=== PATIENT | female | born 1995 | race Caucasian/White ===

== ENCOUNTER 2018-01-06 21:27 | Outpatient (CLI) | payer SELFPAY ==
[2018-01-20 17:26] VITALS: BMI 32.8
== END 2018-01-07 19:37 | disposition home or self-care (01) ==
LOC: D.LDO 21:27 → D.LD 23:12 → D.LDO 01-07 19:37
DX: O26.893 Other specified pregnancy related conditions, third trimester (principal); Z3A.37 37 weeks gestation of pregnancy

== ENCOUNTER → 2018-01-07 13:43 | Outpatient (CLI) | payer SELFPAY ==
[~2018-01-07 13:43] MED LIST: IRON OTC; PRENATAL COMPLE1 TAB PO; stool softner
[2018-01-20 17:26] VITALS: BMI 32.8
== END | disposition home or self-care (01) ==
LOC: D.LDO 13:43
DX: O26.893 Other specified pregnancy related conditions, third trimester (principal); Z3A.37 37 weeks gestation of pregnancy

== ENCOUNTER 2018-01-17 12:23 | Inpatient (IN) | payer OTHER ==
[~2018-01-17] VITALS: Ht 165.1 cm; Wt 89.4 kg
--- NOTE | ~2018-01-17 | DS ---
PATIENT:LINDA MAR :89 MEDICAL RECORD: [id number] DISCHARGE SUMMARY ADMISSION DATE: 01/20/18 DISCHARGE DATE: 01/23/18 DATE OF ADMISSION: 01/21/2018. DATE OF DISCHARGE: 01/23/2018. ADMISSION DIAGNOSIS: at term. DISCHARGE DIAGNOSIS: Mother delivered at term. PROCEDURE: Induction of labor with vaginal delivery. ATTENDING: Demetrius Mae MD HISTORY OF PRESENT ILLNESS AND INDICATION FOR HOSPITALIZATION: See the H&P in the chart. SUMMARY OF HOSPITALIZATION: The patient was admitted to the hospital and underwent induction of labor without incident. At the time of discharge, she is doing well without complaint. The patient is going to be discharged home with ibuprofen for pain management. She has been given contraception counseling and standard precautions. The patient will follow up in 6 weeks at [facility]. TRANSINT:[id number] Voice Confirmation ID: [id number] DOCUMENT ID: [id number] DEMETRIUS MAE MD at 1727 CC: [id number] DICTATION DATE: 01/23/18929 BUGGYMAN: 01/23/18 193 DIS IN 01/23/18 [facility] [address] [place] [address]
--- NOTE | ~2018-01-17 | OP ---
PATIENT NAME: LINDA MAR MEDICAL RECORD: [id number] :89 LOCATION:[id number] ADMISSION DATE:01/20/18 SURGEON: DEMETRIUS GERMAN MD DATE OF OPERATION: 01/21/2018 PREDELIVERY DIAGNOSES: 1. at 39 weeks. 2. Desires delivery. POSTDELIVERY DIAGNOSIS: Mother delivered at 39 weeks. PROCEDURE: Induction of labor with vaginal delivery. ATTENDING: Demetrius German MD ANESTHETIC: Continuous lumbar epidural. FINDINGS: Viable male , vertex presentation, Apgars 9 and 9, weight (). Laceration was a first degree with 4-0 chromic repair. Placenta spontaneous and intact. Nuchal cord times 1 encountered and reduced at the time of delivery. EBL: 300 cc. DISPOSITION: Mother and recovered in room. TRANSINT:[id number] Voice Confirmation ID: [id number] DOCUMENT ID: [id number] DEMETRIUS GERMAN MD at 1727 CC: [id number] DICTATION DATE: 01/21/18 1227 PACKING MACHINE CAN FEEDER: 01/21/18 1302 DIS IN 01/23/18 [facility] [id number] [place] [address]
[2018-01-20] MEDS ORDERED: PRENATAL COMPLE1 TAB PO (17:22)
[2018-01-20] MEDS ORDERED: IRON OTC (17:24)
[2018-01-20] MEDS ORDERED: stool softner (17:25)
[2018-01-20 17:26] VITALS: BP 117/64; Ht 165.1 cm; Wt 89.4 kg
[2018-01-20 18:02] LABS: HEMATOCRIT 36.7 % (36.0-48.0); HEMOGLOBIN 12.7 g/dL (12-16); MCH 31.8 pg (26.0-34.0); MCHC 34.6 g/dL (31.0-37.0); MEAN PLATELET VOLUME 9.7 fL (7.4-10.4); RBC 3.99 10x6/uL (4.00-5.40); RDW 14.2 % (11.5-14.5)
[2018-01-20 21:42] LABS: APPEARANCE CLEAR (CLEAR); BILIRUBIN NEGATIVE (NEGATIVE); COLOR YELLOW (YELLOW); GLUCOSE NEGATIVE (NEGATIVE); KETONE NEGATIVE (NEGATIVE); NITRITE NEGATIVE (NEGATIVE); PROTEIN NEGATIVE (NEGATIVE); SPECIFIC GRAVITY 1.015 (1.005-1.020); UROBILINOGEN NORMAL (NORMAL)
[2018-01-21 16:00] VITALS: BP 114/62
[2018-01-21 20:04] VITALS: BP 114/75
[2018-01-22 06:15] LABS: RAPID PLASMA REAGIN Non Reactive (Non Reactive)
[2018-01-22 07:25] VITALS: BP 121/70
[2018-01-22 07:34] LABS: BASOPHILS 0.2 % (0-2); EOSINOPHILS 1.2 % (0-7); HEMATOCRIT 37.8 % (36.0-48.0); HEMOGLOBIN 12.7 g/dL (12-16); IMMATURE GRANULOCYTES 0.7 % (0-5); LYMPHOCYTES 13.7 % (15-50); MCH 31.1 pg (26.0-34.0); MCHC 33.6 g/dL (31.0-37.0); MCV 92.6 fL (80.0-100.0); MEAN PLATELET VOLUME 9.6 fL (7.4-10.4); MONOCYTES 8.3 % (2-11); NEUTROPHILS 75.9 % (40-80); RBC 4.08 10x6/uL (4.00-5.40); RDW 14.1 % (11.5-14.5); WBC 12.5 10x3/uL (4.8-10.8)
[2018-01-22 07:38] LABS: PLATELET COUNT 111 10x3/uL (130-400)
[2018-01-22 14:40] VITALS: BP 126/68
[2018-01-23 08:07] VITALS: BP 121/67
== END 2018-01-23 11:05 | disposition home or self-care (01) | DRG 775 ==
LOC: UNDOADMIN 12:23 → D.SDCHOLD 12:23 → D.LD 12:25
PROVIDERS: Obstetrics & Gynecology
PROC: 10907ZC Drainage of Amniotic Fluid, Therapeutic from Products of Conception, Via Natural or Artificial Opening (ICD-10-PCS; principal; 2018-01-21)
PROC: 10E0XZZ Delivery of Products of Conception, External Approach (ICD-10-PCS; 2018-01-21)
PROC: 3E033VJ Introduction of Other Hormone into Peripheral Vein, Percutaneous Approach (ICD-10-PCS; 2018-01-21)
PROC: 0HQ9XZZ Repair Perineum Skin, External Approach (ICD-10-PCS; 2018-01-21)
DX: O99.824 Streptococcus B carrier state complicating childbirth (principal); O36.0930 Maternal care for other rhesus isoimmunization, third trimester, not applicable or unspecified; O69.81X0 Labor and delivery complicated by cord around neck, without compression, not applicable or unspecified; Z3A.39 39 weeks gestation of pregnancy; Z37.0 Single live birth; O70.0 First degree perineal laceration during delivery